=== PATIENT | female | born 1985 | race Caucasian/White ===

== ENCOUNTER 2023-03-09 21:00 | Emergency (ER) | payer BC ==
[~2023-03-09] VITALS: Ht 157.5 cm; Wt 92.1 kg
[2023-03-09 21:10] VITALS: BP_SYST 113; PULSE 94; RESP 20; TEMP 97.1; O2SAT 98
[2023-03-09 22:16] LABS: BASOPHILS # (AUTO) 0.1 K/uL (0.0-0.2); BASOPHILS % (AUTO) 1.2 % (0.0-2.0); EOSINOPHILS # (AUTO) 0.1 K/uL (0.0-0.4); EOSINOPHILS % (AUTO) 1.7 % (0.0-4.0); HEMATOCRIT 27.7 % (36-48); HEMOGLOBIN 9.7 g/dL (12.0-16.0); LYMPHOCYTES # (AUTO) 1.4 K/uL (1.0-5.5); LYMPHOCYTES % (AUTO) 23.2 % (20.5-51.5); MEAN CORPUSCULAR HEMOGLOBIN 33 pg (27-31); MEAN CORPUSCULAR HGB CONC 35 % (32-36); MEAN CORPUSCULAR VOLUME 93 fL (79.0-98.0); MONOCYTES # (AUTO) 0.8 K/uL (0.0-1.0); MONOCYTES % (AUTO) 12.9 % (1.7-9.3); NEUTROPHILS # (AUTO) 3.6 K/uL (1.8-7.7); PLATELET COUNT (AUTO) 271 K/uL (130-430); RED BLOOD CELL COUNT(AUTO) 2.98 MIL/uL (4.2-6.2); RED CELL DISTRIBUTION WIDTH 18.6 % (9.0-15.0); WHITE BLOOD COUNT (AUTO) 5.9 K/uL (4.8-10.8)
[2023-03-09 22:27] LABS: CALCIUM 7.9 mg/dL (8.4-11.0); CREATININE 0.83 mg/dL (0.55-1.30); POTASSIUM 3.8 mmol/L (3.5-5.1)
[2023-03-09 22:30] LABS: PROTHROMBIN TIME 10.1 SECS (9.5-12.5)
[2023-03-09 22:34] LABS: ALBUMIN 3.5 g/dL (3.4-4.8); TOTAL BILIRUBIN 0.3 mg/dL (0.0-1.0); TOTAL PROTEIN, SERUM 7.2 g/dL (6.4-8.3)
[2023-03-09] MEDS ORDERED: MOM PO (22:34)
[2023-03-09 22:41] VITALS: BP_SYST 113; PULSE 94; RESP 20; TEMP 97.1; O2SAT 98
== END 2023-03-09 22:41 | disposition home or self-care (01) ==
LOC: SED 21:00
DX: K60.2 Anal fissure, unspecified (principal); K21.9 Gastro-esophageal reflux disease without esophagitis; K92.1 Melena; Z88.1 Allergy status to other antibiotic agents; Z79.899 Other long term (current) drug therapy
CPT/HCPCS: 36415; 80053; 85025; 85610-TC; 85730-TC; 93005; 99284

== ENCOUNTER → 2023-09-16 | Emergency (ER) | payer BC ==
[~2023-09-16] VITALS: Ht 157.5 cm; Wt 103.9 kg
[~2023-09-16] MED LIST: MOM PO
[2023-09-16 17:32] VITALS: BP_SYST 130; PULSE 110; RESP 20; TEMP 98.3; TEMP 99.5; O2SAT 98
[2023-09-16 18:25] LABS: COVID19 ANTIGEN SOFIA FIA NEGATIVE (NEGATIVE)
[2023-09-16 18:26] LABS: INFLUENZA TYPE A Negative (NEGATIVE); INFLUENZA TYPE B NEGATIVE (NEGATIVE)
[2023-09-16] MEDS: ACETAMINOPHEN 500 MG TABLET PO ONE (18:26)
[2023-09-16 18:30] LABS: BILIRUBIN,URINE NEGATIVE (NEGATIVE); CLARITY/URINE CLEAR (CLEAR); COLOR,URINE YELLOW (YELLOW); GLUCOSE,URINE NEGATIVE (NEGATIVE); KETONES,URINE TRACE (NEGATIVE); LEUKOCYTE ESTERASE ,URINE NEGATIVE (NEGATIVE); NITRITE, URINE NEGATIVE (NEGATIVE); PROTEIN URINE NEGATIVE (NEGATIVE)
[2023-09-16 18:45] LABS: BLOOD, URINE TRACE (NEGATIVE)
[2023-09-16 18:58] LABS: BACTERIA,URINE FEW /HPF (None Seen); RBC,URINE 20-50 /HPF (0-3); WBC,URINE 0-3 /HPF (0-3)
[2023-09-16 19:00] LABS: MUCUS,URINE 1+ /LPF (None Seen)
[2023-09-16 19:31] VITALS: BP_SYST 136; PULSE 99; RESP 18; TEMP 99.1; O2SAT 98
== END | disposition home or self-care (01) ==
LOC: SED 17:19
DX: J06.9 Acute upper respiratory infection, unspecified (principal); R05.9 Cough, unspecified; R51.9 Headache, unspecified; J45.909 Unspecified asthma, uncomplicated; Z88.1 Allergy status to other antibiotic agents; Z79.899 Other long term (current) drug therapy; Z20.822 Contact with and (suspected) exposure to COVID-19
CPT/HCPCS: 36415; 71045; 81000; 81001; 81015; 81025; 99284